=== PATIENT | male | born 1995 | race Caucasian/White ===

== ENCOUNTER 2018-01-15 17:19 | Emergency (ER) | payer MEDICAID ==
[~2018-01-15] VITALS: Ht 165.1 cm; Wt 61.2 kg
[~2018-01-15 17:19] MED LIST: AMOXICILLIN500 MG PO; IBUPROFEN400 MG PO; NKM; RANITIDINE HCL150 MG ORAL; ZOFRAN ODT4 MG ORAL
--- NOTE | 2018-01-15 17:59 | Emergency Room Report ---
History of Present Illness General Chief Complaint: General Complaint Source: Patient Present Illness HPI 22 yo male patient presents to ER complaining of nausea and vomiting following ingesting Tylenol. Patient reports ingesting pills at 1400; states ingested 3 pills of 325mg Tylenol. Complains of nausea and vomiting since that time. Denies thoughts of suicide or hurting others. Reports hx of tooth ache; being seen by dentist currently; reports out of pain medication so took extra Tylenol pills to relieve pain symptoms. Reports next appointment with dentist tomorrow. Patient denies fever, chest pain, SOB. Patient denies abdominal pain, diarrhea, abdominal pain. Allergies: Coded Allergies: No Known Allergies (Unverified , 10/10/12) Patient History Past Medical History: see triage record Reviewed Nursing Documentation: PMH: Agreed, PSxH: Agreed Nursing Documentation-PMH Past Medical History: No Stated History Hx Asthma: Yes Review of Systems All Other Systems: negative except mentioned in HPI Physical Exam Vital Signs Date Time Temp Pulse Resp B/P (MAP) Pulse Ox O2 Delivery O2 Flow Rate FiO2 01/15/18 17:29 97.8 84 16 120/71 99 Room Air 97.9 Sp02 EP Interpretation: reviewed, normal General Appearance: well appearing, no apparent distress, alert, GCS 15 Head: normocephalic, atraumatic Eyes: bilateral eye normal inspection, bilateral eye PERRL ENT: hearing grossly normal, normal pharynx, no angioedema, normal voice, uvula midline, moist mucus membranes Neck: full range of motion Respiratory: lungs clear, normal breath sounds, no rhonchi, no respiratory distress, no accessory muscle use, no wheezing, speaking full sentences Cardiovascular #1: regular rate, rhythm, no edema Gastrointestinal: non tender, soft, no mass, non-distended, no guarding, no rebound Genitourinary: no CVA tenderness Musculoskeletal: back normal, digits/nails normal, gait/station normal, normal range of motion, non-tender Neurologic: alert, oriented x3, responsive, motor strength/tone normal, sensory intact Psychiatric: mood/affect normal Skin: no rash Lymphatic: no adenopathy Medical Decision Making PA Attestation Dr. Freeman is my supervising Physician whom patient management has been discussed with. Diagnostic Impression: Primary Impression: Vomiting ER Course Pt. presents to the ED c/o vomiting. Ddx considered but are not limited to enteritis, viral syndrome, food poisoning. Vital signs: are WNL, pt. is afebrile Ordered labs, urine drug screen and medication. Low suspicion for acetaminophen toxicity. PE benign. ER COURSE: Medication provided to patient, patient reports feeling better following administration of medication. Labs unremarkable, no elevation in WBC. Changes likely due to vomiting symptoms. Acetaminophen level not elevated. UA unremarkable. Urine drug screen negative. Discussed results with patient. Informed patient not to take larger than recommended dose of Tylenol. Informed patient to take medication with food to avoid irritation to stomach. Instructed patient to drink of fluids to avoid dehydration. Instructed patient not to not eat foods that may irritate stomach, rest at home. Informed patient to return to dentist tomorrow for further treatment and discuss pain medication at that time. Patient reports understanding and agreement to treatment plan. Patient given second dose of Zofran prior to discharge. DISCHARGE: Rx provided for Zofran At this time pt is stable for d/c to home. Patient is resting comfortably, in no acute distress, nontoxic appearing, talking without difficulty. Patient to take medications as instructed Will provide with patient care instructions and any necessary prescriptions. Care plan and follow-up instructions provided. Patient instructed to follow-up with primary care provider in 3 - 5 days. Patient questions asked and answered. Patient reports understanding and agreement to treatment plan. ER precautions given. Patient instructed to return to ER immediately for any new or worsening of symptoms including but not limited to increasing SOB, persistent fever. Labs Test 01/15/18 18:24 White Blood Count 10.6 K/UL (4.8-10.8) Red Blood Count 4.52 M/UL (4.70-6.10) Hemoglobin 13.6 G/DL (14.2-18.0) Hematocrit 38.7 % (42.0-52.0) Mean Corpuscular Volume 86 FL (80-99) Mean Corpuscular Hemoglobin 30.2 PG (27.0-31.0) Mean Corpuscular Hemoglobin Concent 35.2 G/DL (32.0-36.0) Red Cell Distribution Width 11.0 % (11.6-14.8) Platelet Count 240 K/UL (150-450) Mean Platelet Volume 6.6 FL (6.5-10.1) Neutrophils (%) (Auto) 79.1 % (45.0-75.0) Lymphocytes (%) (Auto) 15.0 % (20.0-45.0) Monocytes (%) (Auto) 4.8 % (1.0-10.0) Eosinophils (%) (Auto) 0.5 % (0.0-3.0) Basophils (%) (Auto) 0.6 % (0.0-2.0) Urine Color Pale yellow Urine Appearance Clear Urine pH 6.5 (4.5-8.0) Urine Specific [place] 1.010 (1.005-1.035) Urine Protein Negative (NEGATIVE) Urine Glucose (UA) Negative (NEGATIVE) Urine Ketones 2+ (NEGATIVE) Urine Occult Blood 1+ (NEGATIVE) Urine Nitrite Negative (NEGATIVE) Urine Bilirubin Negative (NEGATIVE) Urine Urobilinogen Normal MG/DL (0.0-1.0) Urine Leukocyte Esterase Negative (NEGATIVE) Urine RBC 0-2 /HPF (0 - 0) Urine WBC 0-2 /HPF (0 - 0) Urine Squamous Epithelial Cells None /LPF (NONE/OCC) Urine Bacteria None /HPF (NONE) Sodium Level 124 MMOL/L (136-145) Potassium Level 3.4 MMOL/L (3.5-5.1) Chloride Level 90 MMOL/L (98-107) Carbon Dioxide Level 28 MMOL/L (21-32) Anion Gap 6 mmol/L (5-15) Blood Urea Nitrogen 10 mg/dL (7-18) Creatinine 0.7 MG/DL (0.55-1.30) Estimat Glomerular Filtration Rate > 60 mL/min (>60) Glucose Level 100 MG/DL (74-106) Calcium Level 8.6 MG/DL (8.5-10.1) Total Bilirubin 0.9 MG/DL (0.2-1.0) Aspartate Amino Transf (AST/SGOT) 15 U/L (15-37) Alanine Aminotransferase (ALT/SGPT) 21 U/L (12-78) Alkaline Phosphatase 71 U/L (46-116) Total Protein 7.2 G/DL (6.4-8.2) Albumin 4.1 G/DL (3.4-5.0) Globulin 3.1 g/dL Albumin/Globulin Ratio 1.3 (1.0-2.7) Urine Opiates Screen Negative (NEGATIVE) Acetaminophen Level < 2 MCG/ML (10-30) Urine Barbiturates Screen Negative (NEGATIVE) Phencyclidine (PCP) Screen Negative (NEGATIVE) Urine Amphetamines Screen Negative (NEGATIVE) Urine Benzodiazepines Screen Negative (NEGATIVE) Urine Cocaine Screen Negative (NEGATIVE) Urine Marijuana (THC) Screen Negative (NEGATIVE) Last Vital Signs Date Time Temp Pulse Resp B/P (MAP) Pulse Ox O2 Delivery O2 Flow Rate FiO2 01/15/18 17:29 97.8 84 16 120/71 99 Room Air 97.9 Disposition: HOME, SELF-CARE Condition: Stable Scripts Ondansetron Odt* (ZOFRAN ODT*) 4 Mg Tab.rapdis 4 MG ORAL Q6H Y for Nausea & Vomiting, #30 TAB Prov: Cornelio Jarvis 01/15/18 Patient Instructions: Acetaminophen Overdose, Nausea and Vomiting, Adult, Easy- to-Read Additional Instructions: Followup with primary care provider in 3 -5 days. Followup with dentist for further treatment and referral. Do not take Tylenol in larger than dose prescribed. Take medications as directed. Patient questions asked and answered. ER precautions given, patient instructed to return to ER immediately for any new or worsening of symptoms including but not limited to intractable vomiting, fever, blood in stool. Cornelio Jarvis Jan 15, 2018 17:59
[2018-01-15 18:42] LABS: BASOPHILS % (AUTO) 0.6 % (0.0-2.0); EOSINOPHILS % (AUTO) 0.5 % (0.0-3.0); HEMATOCRIT 38.7 % (42.0-52.0); HEMOGLOBIN 13.6 G/DL (14.2-18.0); MEAN CORPUSCULAR VOLUME 86 FL (80-99); MONOCYTES % (AUTO) 4.8 % (1.0-10.0); NEUTROPHILS % (AUTO) 79.1 % (45.0-75.0); PLATELET COUNT 240 K/UL (150-450); RED BLOOD COUNT 4.52 M/UL (4.70-6.10); WHITE BLOOD COUNT 10.6 K/UL (4.8-10.8)
[2018-01-15 18:43] LABS: APPEARANCE,URINE CLEAR; BILIRUBIN, URINE NEGATIVE (NEGATIVE); COLOR,URINE PALE YELLOW; GLUCOSE, URINE (UA) NEGATIVE (NEGATIVE); KETONES,URINE 2+ (NEGATIVE); LEUKOCYTE ESTERASE ,URINE NEGATIVE (NEGATIVE); NITRITE,URINE NEGATIVE (NEGATIVE); PH,URINE 6.5 (4.5-8.0); PROTEIN,URINE NEGATIVE (NEGATIVE); UROBILINOGEN,URINE NORMAL MG/DL (0.0-1.0)
[2018-01-15 18:52] LABS: ANION GAP 6 mmol/L (5-15); BLOOD UREA NITROGEN 10 mg/dL (7-18); CALCIUM 8.6 MG/DL (8.5-10.1); CARBON DIOXIDE 28 MMOL/L (21-32); CHLORIDE 90 MMOL/L (98-107); CREATININE 0.7 MG/DL (0.55-1.30); POTASSIUM 3.4 MMOL/L (3.5-5.1); SODIUM 124 MMOL/L (136-145)
[2018-01-15 18:57] LABS: ALANINE AMINOTRANSFERASE 21 U/L (12-78); ALBUMIN 4.1 G/DL (3.4-5.0); ALBUMIN/GLOBULIN RATIO 1.3 (1.0-2.7); ALKALINE PHOSPHATASE 71 U/L (46-116); ASPARTATE AMINO TRANSFERASE 15 U/L (15-37); BILIRUBIN,TOTAL 0.9 MG/DL (0.2-1.0)
[2018-01-15] MEDS ORDERED: ZOFRAN ODT4 MG ORAL (19:57)
[2018-01-15] MEDS ORDERED: Meclizine 25mg tab ORAL PRN (20:45)
[2018-01-15 21:36] VITALS: BP 128/72
== END 2018-01-15 21:37 | disposition home or self-care (01) ==
LOC: EMR 18:20
DX: R11.2 Nausea with vomiting, unspecified (principal); J45.909 Unspecified asthma, uncomplicated
CPT/HCPCS: 36415; 80053; 80307; 80329; 81003; 85025; 99284

== ENCOUNTER 2018-08-03 22:58 | Emergency (ER) | payer MEDICAID ==
[~2018-08-03] VITALS: Ht 165.1 cm; Wt 72.6 kg
[2018-08-03 23:13] VITALS: BP 118/67
[2018-08-03] MEDS ORDERED: OCUFLOX5 ML RIGHT EYE (23:50)
[2018-08-03] MEDS ORDERED: CLARITIN-D 241 EACH PO (23:50)
[2018-08-03 23:55] VITALS: BP 120/60
--- NOTE | 2018-08-04 01:14 | Emergency Room Report ---
History of Present Illness General Chief Complaint: Eye Problems Source: Patient Present Illness HPI 22-year-old male presents ED for evaluation of eye pain. Started 2 days ago. States pain is dull, 5 out of 10, nonradiating. Denies any photophobia or blurry vision. Notes pain to the right eye, no pain to the left. States that he also notes tearing sensation and redness to the eye. Denies any sick contacts or recent travel. Denies any fevers or chills. Denies any sore throat or cough. No other aggravating relieving factors. Denies any other associated symptoms Allergies: Coded Allergies: No Known Allergies (Unverified , 10/10/12) Patient History Past Medical History: asthma Past Surgical History: none Pertinent Family History: none Social History: Denies: smoking, alcohol use, drug use Immunizations: UTD Reviewed Nursing Documentation: PMH: Agreed; PSxH: Agreed Nursing Documentation-PMH Past Medical History: No Stated History Hx Asthma: Yes Review of Systems All Other Systems: negative except mentioned in HPI Physical Exam Vital Signs Date Time Temp Pulse Resp B/P (MAP) Pulse Ox O2 Delivery O2 Flow Rate FiO2 08/03/18 23:08 97.8 75 14 118/67 97 Room Air 97.9 Sp02 EP Interpretation: reviewed, normal General Appearance: no apparent distress, alert, GCS 15, non-toxic Head: normocephalic Eyes: bilateral eye normal inspection, bilateral eye PERRL, bilateral eye EOMI , bilateral eye lid inflammation, bilateral eye visual acuity ENT: hearing grossly normal, normal pharynx, no angioedema, normal voice Neck: full range of motion, supple, no meningismus, supple/symm/no masses Respiratory: normal inspection Cardiovascular #1: normal inspection Gastrointestinal: normal inspection Rectal: deferred Genitourinary: no CVA tenderness Musculoskeletal: back normal Neurologic: alert, oriented x3, responsive, motor strength/tone normal, sensory intact, speech normal Psychiatric: normal inspection Skin: normal inspection Lymphatic: normal inspection Medical Decision Making Diagnostic Impression: Primary Impression: Eye problem ER Course Hospital Course 22-year-old M presents to ED with r eye pain Differential diagnoses include: conjunctivitis, traumatic iritis, foreign body, corneal abrasion Clinical course Patient placed on stretcher. After initial history, physical exam revealed a male no acute distress. There is tenderness to the right eyelid. No sign of a stye or other and infection. No scleral injection. Visual acuity unchanged. No photophobia. There is some appreciable swelling of both eyelids. Consistent with allergies. Patient describes symptoms of scleral injection and tearing sensation. We will treat for both allergies and conjunctivitis. I'll prescribe Claritin and Ocuflox. Recommend follow-up with ophthalmology Diagnosis - eye problem Stable and discharged to home with prescription for Ocuflox, claritin. Followup with PMD/Optho. Return to ED if symptoms recur or worsen Last Vital Signs Date Time Temp Pulse Resp B/P (MAP) Pulse Ox O2 Delivery O2 Flow Rate FiO2 08/03/18 23:55 97.9 70 18 120/60 96 Room Air Status: improved Disposition: HOME, SELF-CARE Condition: Stable Scripts Loratadine/Pseudoephedrine (CLARITIN-D 24 HOUR TABLET) 1 Each Tab.er.24h 1 TAB PO DAILY, #10 TAB Prov: Jeremy Pizarro MD 08/03/18 Ofloxacin (OCUFLOX) 5 Ml Drops 1 DROP RIGHT EYE QID for 7 Days, ML Prov: Jeremy Pizarro MD 08/03/18 Referrals: [facility] (PCP) Patient Instructions: Bacterial Conjunctivitis Jeremy Pizarro MD Aug 04, 2018 01:14
== END 2018-08-03 23:55 | disposition home or self-care (01) ==
LOC: EMR 23:33
DX: H57.11 Ocular pain, right eye (principal); J45.909 Unspecified asthma, uncomplicated
CPT/HCPCS: 99283

== ENCOUNTER 2018-10-02 20:51 | Emergency (ER) | payer MEDICAID ==
[~2018-10-02] VITALS: Ht 165.1 cm; Wt 63.5 kg
[~2018-10-02 20:51] MED LIST changes: +CLARITIN-D 241 EACH PO; +OCUFLOX5 ML RIGHT EYE
[2018-10-02 21:10] VITALS: BP 114/72
[2018-10-02] MEDS ORDERED: Lidocaine 2% Visc 15ml soln ORAL ONE (21:30)
[2018-10-02] MEDS ORDERED: Dicyclomine HCl 10mg/5ml oral soln ORAL ONE (21:30)
[2018-10-02] MEDS ORDERED: Mylanta II UD 30ml ORAL ONE (21:30)
--- NOTE | 2018-10-02 21:31 | Emergency Room Report ---
History of Present Illness General Chief Complaint: Abdominal Pain Source: Patient Present Illness HPI Patient is a 22-year-old male who presented after increased epigastric pain and vomiting. The patient reports having multiple episodes of watery diarrhea associated with intermittent emesis. Patient reports having eaten some spaghetti which he thinks might of been bad. He denies any bloody stools. He denies recent alcohol intake. He denies marijuana use. Allergies: Coded Allergies: No Known Allergies (Unverified , 10/10/12) Patient History Past Medical History: see triage record Reviewed Nursing Documentation: PMH: Agreed; PSxH: Agreed Nursing Documentation-PMH Hx Asthma: Yes Review of Systems All Other Systems: negative except mentioned in HPI Physical Exam Vital Signs Date Time Temp Pulse Resp B/P (MAP) Pulse Ox O2 Delivery O2 Flow Rate FiO2 10/02/18 20:56 99.7 122 18 112/71 97 Room Air Sp02 EP Interpretation: reviewed, normal General Appearance: normal inspection, well appearing, no apparent distress, alert, GCS 15, non-toxic Head: atraumatic ENT: normal ENT inspection, hearing grossly normal, normal voice, other - right lower lip herpetiform lesions Neck: normal inspection, full range of motion, supple, no bony tend Respiratory: normal inspection, lungs clear, normal breath sounds, no respiratory distress, no retraction, no wheezing Cardiovascular #1: regular rate, rhythm, no edema Gastrointestinal: normal inspection, normal bowel sounds, non tender, soft, no guarding, no hernia Genitourinary: no CVA tenderness Musculoskeletal: normal inspection, back normal, normal range of motion Neurologic: normal inspection, alert, responsive, speech normal Psychiatric: normal inspection, judgement/insight normal, mood/affect normal Skin: normal inspection, normal color, no rash Medical Decision Making Diagnostic Impression: Primary Impression: Abdominal pain Additional Impression: Gastroenteritis ER Course Patient presented for abdominal pain. Differential diagnoses included ischemic bowel, appendicitis, perforated viscus, abdominal aortic aneurysm, inferior myocardial infarction, viral gastroenteritis Because of complexity of patient's case laboratory testing and imaging studies were ordered. Patient was given IV fluids as well as IV antiemetics. He is given medications for abdominal discomfort. The patient was noted to have symptomatic improvement. Patient was given acyclovir for oral herpes The patient given prescription for antiemetics and antispasmodics.Repeat abdominal exam appeared to be benign the patient is advised to return if he began having worsening pain persistent vomiting or other concerns. He is advised to recheck with his primary care physicianThe patient is advised to follow up with primary care doctor in 1-2 days. Patient is advised to return if any worsening condition or if any changes in status that are concerning. This report is dictated with [employer] plunket nurse software which may occasionally lead to discrepancies related to use of this software. Last Vital Signs Date Time Temp Pulse Resp B/P (MAP) Pulse Ox O2 Delivery O2 Flow Rate FiO2 10/02/18 20:56 99.7 122 18 112/71 97 Room Air Status: improved Disposition: HOME, SELF-CARE Condition: Stable Scripts Dicyclomine Hcl* (DICYCLOMINE HCL*) 10 Mg Capsule 10 MG PO QID, #30 CAP Prov: Richard Lee MD 10/02/18 Ondansetron (Zofran) 4 Mg Tablet 4 MG ORAL Q6H PRN for Nausea & Vomiting, #30 TAB 0 Refills Prov: Richard Lee MD 10/02/18 Acyclovir* (ACYCLOVIR*) 400 Mg Tablet 400 MG ORAL FIVE TIMES A DAY, #35 TAB Prov: Richard Lee MD 10/02/18 Richard Lee MD Oct 02, 2018 21:31
[2018-10-02 21:56] LABS: APPEARANCE,URINE CLEAR; BILIRUBIN, URINE 1+ (NEGATIVE); GLUCOSE, URINE (UA) NEGATIVE (NEGATIVE); KETONES,URINE 3+ (NEGATIVE); LEUKOCYTE ESTERASE ,URINE 1+ (NEGATIVE); NITRITE,URINE NEGATIVE (NEGATIVE); PH,URINE 7 (4.5-8.0); PROTEIN,URINE 2+ (NEGATIVE); UROBILINOGEN,URINE 4 MG/DL (0.0-1.0)
[2018-10-02 22:14] LABS: ANION GAP 8 mmol/L (5-15); BLOOD UREA NITROGEN 14 mg/dL (7-18); CALCIUM 9.4 MG/DL (8.5-10.1); CARBON DIOXIDE 28 MMOL/L (21-32); CHLORIDE 100 MMOL/L (98-107); POTASSIUM 3.9 MMOL/L (3.5-5.1); SODIUM 136 MMOL/L (136-145)
[2018-10-02 22:24] LABS: ALANINE AMINOTRANSFERASE 23 U/L (12-78); ALBUMIN/GLOBULIN RATIO 0.9 (1.0-2.7); ALKALINE PHOSPHATASE 71 U/L (46-116); ASPARTATE AMINO TRANSFERASE 15 U/L (15-37); BILIRUBIN,TOTAL 1.8 MG/DL (0.2-1.0); COLOR,URINE YELLOW
[2018-10-02 22:25] LABS: BASOPHILS % (AUTO) 0.5 % (0.0-2.0); EOSINOPHILS % (AUTO) 0.2 % (0.0-3.0); HEMOGLOBIN 16.6 G/DL (14.2-18.0); LYMPHOCYTES % (AUTO) 13.7 % (20.0-45.0); MEAN CORPUSCULAR VOLUME 86 FL (80-99); MONOCYTES % (AUTO) 7.5 % (1.0-10.0); NEUTROPHILS % (AUTO) 78.1 % (45.0-75.0); PLATELET COUNT 214 K/UL (150-450); RED BLOOD COUNT 5.49 M/UL (4.70-6.10); RED CELL DISTRIBUTION WIDTH 10.7 % (11.6-14.8); WHITE BLOOD COUNT 7.8 K/UL (4.8-10.8)
[2018-10-02 22:26] LABS: INR 1.2 (0.9-1.1)
[2018-10-02 22:30] LABS: BILIRUBIN,DIRECT 0.2 MG/DL (0.0-0.3)
[2018-10-02] MEDS ORDERED: ZOFRAN4 MG ORAL (23:00)
[2018-10-02] MEDS ORDERED: DICYCLOMINE HCL10 MG PO (23:00)
[2018-10-02] MEDS ORDERED: ACYCLOVIR400 MG ORAL (23:00)
[2018-10-02 23:06] VITALS: BP 116/74
== END 2018-10-02 23:06 | disposition home or self-care (01) ==
LOC: EMR 21:16
DX: K52.9 Noninfective gastroenteritis and colitis, unspecified (principal); R10.13 Epigastric pain; R19.7 Diarrhea, unspecified
CPT/HCPCS: 36415; 80053; 81003; 82248; 83690; 85025; 85610; 85730; 86850; 86900; 86901; 96361; 96374; 96375; 99284; J2405; S0028

== ENCOUNTER 2018-10-22 10:11 | Emergency (ER) | payer MEDICAID ==
[~2018-10-22] VITALS: Ht 162.6 cm; Wt 59.0 kg
[~2018-10-22 10:11] MED LIST changes: +ACYCLOVIR400 MG ORAL; +DICYCLOMINE HCL10 MG PO; +ZOFRAN4 MG ORAL
[2018-10-22 11:00] LABS: APPEARANCE,URINE CLEAR; BILIRUBIN, URINE NEGATIVE (NEGATIVE); COLOR,URINE PALE YELLOW; GLUCOSE, URINE (UA) NEGATIVE (NEGATIVE); KETONES,URINE NEGATIVE (NEGATIVE); LEUKOCYTE ESTERASE ,URINE NEGATIVE (NEGATIVE); NITRITE,URINE NEGATIVE (NEGATIVE); PH,URINE 8 (4.5-8.0); PROTEIN,URINE NEGATIVE (NEGATIVE); UROBILINOGEN,URINE NORMAL MG/DL (0.0-1.0)
[2018-10-22] MEDS ORDERED: Isovue-300 100ml vial INJ PRN (11:00)
[2018-10-22] MEDS ORDERED: Morphine Sulfate 4mg/ml Inj (IV/IM USE ONLY) IVP ONE ×2 (11:00)
[2018-10-22 11:01] LABS: EOSINOPHILS % (AUTO) 0.2 % (0.0-3.0); HEMATOCRIT 47.3 % (42.0-52.0); HEMOGLOBIN 16.1 G/DL (14.2-18.0); LYMPHOCYTES % (AUTO) 8.1 % (20.0-45.0); MEAN CORPUSCULAR VOLUME 85 FL (80-99); MONOCYTES % (AUTO) 6.9 % (1.0-10.0); NEUTROPHILS % (AUTO) 83.7 % (45.0-75.0); PLATELET COUNT 252 K/UL (150-450); RED BLOOD COUNT 5.58 M/UL (4.70-6.10); WHITE BLOOD COUNT 14.7 K/UL (4.8-10.8)
--- NOTE | 2018-10-22 11:04 | Emergency Room Report ---
History of Present Illness General Chief Complaint: Abdominal Pain Source: Patient Present Illness [facility] Antonio is a very pleasant 22 year-old male who presents with severe right lower quadrant pain which began gradually last night. He attempted to go to work today, however due to severe pain he went home. He has mild global headache. He has subjective fever. Positive nausea. Last meal was last night. He did not eat today. No history of surgery. Pain is worse with palpation movement and cough. No radiation of the pain. 2 brothers have a history of appendicitis. Patient doesn't smoke, he does not drink, he works as a fast food cashier. Pain is 8 out of 10 in severity, dull achy pain. Pain is constant. Allergies: Coded Allergies: No Known Allergies (Unverified , 10/10/12) Patient History Past Medical History: none Past Surgical History: none Pertinent Family History: other - as per history of present illness Social History: Denies: smoking, alcohol use Reviewed Nursing Documentation: PMH: Agreed; PSxH: Agreed Nursing Documentation-PMH Hx Cardiac Problems: No Hx Hypertension: No Hx Pacemaker: No Hx Asthma: Yes Hx COPD: No Hx Diabetes: No Hx Cancer: No Hx Gastrointestinal Problems: No Hx Dialysis: No Hx Neurological Problems: No Hx Cerebrovascular Accident: No Hx Seizures: No Review of Systems Constitutional: Reports: fever, malaise Gastrointestinal: Reports: abdominal pain, nausea Neurological: Reports: headache All Other Systems: negative except mentioned in HPI Physical Exam Vital Signs Date Time Temp Pulse Resp B/P (MAP) Pulse Ox O2 Delivery O2 Flow Rate FiO2 10/22/18 10:15 98.6 123 16 123/70 98 Room Air Sp02 EP Interpretation: reviewed, normal General Appearance: alert, GCS 15, non-toxic, mild distress, other - appears pale, grayish skin discoloration Head: normocephalic, atraumatic Eyes: bilateral eye normal inspection, bilateral eye PERRL ENT: hearing grossly normal, normal pharynx, no angioedema, normal voice Neck: full range of motion, supple/symm/no masses Respiratory: chest non-tender, lungs clear, normal breath sounds, speaking full sentences Cardiovascular #1: no edema, no gallop, no JVD, no murmur, tachycardia Gastrointestinal: soft, guarding, rebound, tenderness, other - RLQ tenderness with guarding and tenderness Musculoskeletal: gait/station normal, normal range of motion, non-tender Neurologic: alert, oriented x3, responsive, motor strength/tone normal, sensory intact, speech normal Psychiatric: judgement/insight normal, memory normal, mood/affect normal, no suicidal/homicidal ideation Skin: normal color, no rash, warm/dry, well hydrated Medical Decision Making Diagnostic Impression: Primary Impression: Abdominal pain ER Course Antonio is a 22 yo male who presents with RLQ pain. With tenderness and elevated WBC, I immediately suspected appendicitis. Howvever, I reviewed EMR. He has had at least 5 prior similar presentations with GI concerns. I spoke with him extensively. I informed him that I am concerned from inflammatory bowel disease such as Crohn's disease. I strongly encouraged him to see his PCP. He has had symptoms of diarrhea in the past. rx; flagyl, cipro Tachycardia did resolved with pain medication and IVF Labs Test 10/22/18 10:27 White Blood Count 14.7 K/UL (4.8-10.8) Red Blood Count 5.58 M/UL (4.70-6.10) Hemoglobin 16.1 G/DL (14.2-18.0) Hematocrit 47.3 % (42.0-52.0) Mean Corpuscular Volume 85 FL (80-99) Mean Corpuscular Hemoglobin 28.8 PG (27.0-31.0) Mean Corpuscular Hemoglobin Concent 34.0 G/DL (32.0-36.0) Red Cell Distribution Width 11.0 % (11.6-14.8) Platelet Count 252 K/UL (150-450) Mean Platelet Volume 7.1 FL (6.5-10.1) Neutrophils (%) (Auto) 83.7 % (45.0-75.0) Lymphocytes (%) (Auto) 8.1 % (20.0-45.0) Monocytes (%) (Auto) 6.9 % (1.0-10.0) Eosinophils (%) (Auto) 0.2 % (0.0-3.0) Basophils (%) (Auto) 1.0 % (0.0-2.0) Urine Color Pale yellow Urine Appearance Clear Urine pH 8 (4.5-8.0) Urine Specific [place] 1.010 (1.005-1.035) Urine Protein Negative (NEGATIVE) Urine Glucose (UA) Negative (NEGATIVE) Urine Ketones Negative (NEGATIVE) Urine Blood 1+ (NEGATIVE) Urine Nitrite Negative (NEGATIVE) Urine Bilirubin Negative (NEGATIVE) Urine Urobilinogen Normal MG/DL (0.0-1.0) Urine Leukocyte Esterase Negative (NEGATIVE) Urine RBC 2-4 /HPF (0 - 0) Urine WBC 0 /HPF (0 - 0) Urine Squamous Epithelial Cells Occasional /LPF Urine Bacteria Occasional /HPF (NONE) Sodium Level 136 MMOL/L (136-145) Potassium Level 3.7 MMOL/L (3.5-5.1) Chloride Level 100 MMOL/L (98-107) Carbon Dioxide Level 28 MMOL/L (21-32) Anion Gap 8 mmol/L (5-15) Blood Urea Nitrogen 9 mg/dL (7-18) Creatinine 0.9 MG/DL (0.55-1.30) Estimat Glomerular Filtration Rate > 60 mL/min (>60) Glucose Level 91 MG/DL (74-106) Calcium Level 9.5 MG/DL (8.5-10.1) Total Bilirubin 0.8 MG/DL (0.2-1.0) Aspartate Amino Transf (AST/SGOT) 17 U/L (15-37) Alanine Aminotransferase (ALT/SGPT) 33 U/L (12-78) Alkaline Phosphatase 84 U/L (46-116) Total Protein 9.6 G/DL (6.4-8.2) Albumin 4.6 G/DL (3.4-5.0) Globulin 5.0 g/dL Albumin/Globulin Ratio 0.9 (1.0-2.7) CT/MRI/US Diagnostic Results CT/MRI/US Diagnostic Results : Impression CT no acute process Last Vital Signs Date Time Temp Pulse Resp B/P (MAP) Pulse Ox O2 Delivery O2 Flow Rate FiO2 10/22/18 10:49 113 16 Room Air 10/22/18 10:15 98.6 123/70 98 Status: improved Condition: Stable Referrals: [facility] (PCP) Maren Wong MD Oct 22, 2018 11:04
[2018-10-22 11:10] LABS: ANION GAP 8 mmol/L (5-15); BLOOD UREA NITROGEN 9 mg/dL (7-18); CALCIUM 9.5 MG/DL (8.5-10.1); CARBON DIOXIDE 28 MMOL/L (21-32); CHLORIDE 100 MMOL/L (98-107); CREATININE 0.9 MG/DL (0.55-1.30); POTASSIUM 3.7 MMOL/L (3.5-5.1); SODIUM 136 MMOL/L (136-145)
[2018-10-22 11:15] LABS: ALANINE AMINOTRANSFERASE 33 U/L (12-78); ALBUMIN 4.6 G/DL (3.4-5.0); ALBUMIN/GLOBULIN RATIO 0.9 (1.0-2.7); ALKALINE PHOSPHATASE 84 U/L (46-116); ASPARTATE AMINO TRANSFERASE 17 U/L (15-37); BILIRUBIN,TOTAL 0.8 MG/DL (0.2-1.0)
--- NOTE | 2018-10-22 12:34 | Diagnostic Imaging Report ---
Clinical Indication: Severe right lower quadrant abdominal pain which began gradually last night, subjective fever, positive nausea Technique: No oral contrast utilized, per emergency room physician request IV administration nonionic contrast. Venous phase spiral acquisition obtained through the abdomen and pelvis. Multiplanar reconstructions were generated. Total dose length product 487.52 mGycm. CTDIvol(s) 10.35 mGy. Dose reduction achieved using automated exposure control Comparison: none Findings: Lack of enteric contrast limits assessment of the GI tract. The appendix is normal. There is no evidence of diverticulosis or diverticulitis. The rectum is mildly distended with stool. There is a single very focal mildly dilated small bowel loop in the left upper quadrant. No other small bowel distention. No free or loculated intraperitoneal gas or fluid. The liver, gallbladder, bile ducts, pancreas, spleen, adrenals are unremarkable. There are prominent extrarenal pelvises bilaterally. Otherwise unremarkable kidneys. The bladder is distended, otherwise unremarkable. No renal or ureteral calculi, hydronephrosis, or hydroureter. No pelvic mass or adenopathy. The included lung bases are clear. The bones are unremarkable. Impression: Limited assessment of the GI tract, due to lack of enteric contrast administration No definite acute abnormality. Normal appendix Single focally dilated left upper quadrant small bowel loop, significance doubtful Mild rectal distention with stool. Correlate with any history of constipation The CT scanner at [facility] is accredited by the [employer] and the scans are performed using protocols designed to limit radiation exposure to as low as reasonably achievable to attain images of sufficient resolution adequate for diagnostic evaluation.
[2018-10-22 13:41] VITALS: BP 125/68
[2018-10-22] MEDS ORDERED: FLAGYL500 MG ORAL (13:45)
[2018-10-22] MEDS ORDERED: CIPROFLOXACIN500 M2 ORAL (13:45)
[2018-10-22 14:20] VITALS: BP 122/70
[2018-10-22 14:21] VITALS: BP 122/70
== END 2018-10-22 14:32 | disposition home or self-care (01) ==
LOC: EMR 10:50
DX: R10.31 Right lower quadrant pain (principal); R11.0 Nausea; J45.909 Unspecified asthma, uncomplicated
CPT/HCPCS: 36415; 74177; 80053; 81003; 85025; 96361; 96374; 96375; 96376; 99284; J2270; J2405; Q9967

== ENCOUNTER 2019-04-24 14:28 | Emergency (ER) | payer MEDICAID ==
[~2019-04-24] VITALS: Ht 165.1 cm; Wt 63.5 kg
[~2019-04-24 14:28] MED LIST changes: +CIPROFLOXACIN500 M2 ORAL; +FLAGYL500 MG ORAL
[2019-04-24 14:34] VITALS: BP 122/65
--- NOTE | 2019-04-24 14:40 | NUR ---
ED Nurse Note: Patient presents to ER due to flu-like symptoms (cough, runny nose). No cough, fever, chills or rash noted. Patient awake, alter, oriented x 4. Regular, unlabored breathing noted. No facial grimacing or guarding noted.
--- NOTE | 2019-04-24 14:44 | Emergency Room Report ---
History of Present Illness General Chief Complaint: Flu Like Symptoms Source: Patient Present Illness HPI 23-year-old male with no significant past medical history here complaining of 4 days of sore throat, congestion and cough. Patient is rating the pain in his throat 5 out of 10 without radiation, denying fever and chills. Patient has taken [id number] Mucinex for symptom relief reporting that he now has yellow phlegm as he coughs. Denies wheezing, shortness of breath, chest pain, palpitation, abdominal pain nausea vomiting. Allergies: Coded Allergies: No Known Allergies (Unverified , 10/10/12) Patient History Past Medical History: see triage record Past Surgical History: unable to obtain Pertinent Family History: none Immunizations: UTD Reviewed Nursing Documentation: PMH: Agreed; PSxH: Agreed Nursing Documentation-PMH Past Medical History: No Stated History Hx Cardiac Problems: No Hx Hypertension: No Hx Pacemaker: No Hx Asthma: Yes Hx COPD: No Hx Diabetes: No Hx Cancer: No Hx Gastrointestinal Problems: No Hx Dialysis: No Hx Neurological Problems: No Hx Cerebrovascular Accident: No Hx Seizures: No Review of Systems All Other Systems: negative except mentioned in HPI Physical Exam Vital Signs Date Time Temp Pulse Resp B/P (MAP) Pulse Ox O2 Delivery O2 Flow Rate FiO2 04/24/19 14:34 98.2 83 18 122/65 (84) 97 Room Air Sp02 EP Interpretation: reviewed, normal General Appearance: normal inspection, well appearing Head: normocephalic, atraumatic Eyes: bilateral eye normal inspection, bilateral eye PERRL ENT: no angioedema, TMs + canals normal, uvula midline, tonsillar swelling, pharyngeal erythema Neck: normal inspection, full range of motion, supple Respiratory: normal inspection, chest non-tender, no rhonchi, no wheezing Cardiovascular #1: normal inspection, normal peripheral pulses, regular rate, rhythm, no murmur Gastrointestinal: normal inspection, non tender, soft Genitourinary: no CVA tenderness Musculoskeletal: normal inspection, back normal Neurologic: normal inspection, alert, oriented x3 Psychiatric: normal inspection, judgement/insight normal Skin: normal inspection, normal color, no rash, warm/dry Lymphatic: normal inspection, no adenopathy Medical Decision Making PA Attestation All my diagnosis and treatment plans were reviewed ad discussed with my supervising physician Dr. Lee Diagnostic Impression: Primary Impression: Pharyngitis ER Course 23-year-old male with no significant past medical history here complaining of 4 days of sore throat, congestion and cough. Patient is rating the pain in his throat 5 out of 10 without radiation, denying fever and chills. Patient has taken [id number] Mucinex for symptom relief reporting that he now has yellow phlegm as he coughs. Denies wheezing, shortness of breath, chest pain, palpitation, abdominal pain nausea vomiting. Ddx considered but are not limited to: strep pharyngitis, URI, tonsilitis, peritonsillar absacess, influneza Vital signs: are WNL, pt. is afebrile H&PE are most consistent with: pharyngitis ORDERS: azithromycin, sidney donald ED INTERVENTIONS: None required at this time. DISCHARGE: At this time pt. is stable for d/c to home. Will provide printed patient care instructions, and any necessary prescriptions. Care plan and follow up instructions have been discussed with the patient prior to discharge. Last Vital Signs Date Time Temp Pulse Resp B/P (MAP) Pulse Ox O2 Delivery O2 Flow Rate FiO2 04/24/19 14:34 98.2 83 18 122/65 (84) 97 Room Air Disposition: HOME, SELF-CARE Condition: Stable Scripts Benzonatate* (TESSALON PERLE*) 100 Mg Capsule 100 MG ORAL THREE TIMES A DAY, #20 PERLE Prov: Evelyn Mathis 04/24/19 Azithromycin* (ZITHROMAX*) 250 Mg Tablet 250 MG ORAL DAILY, #6 TAB 0 Refills Take two tables once daily for 1 day, then one tablet once daily for 4 days. Prov: Evelyn Mathis 04/24/19 Patient Instructions: Pharyngitis, [id number] Additional Instructions: Take medication as directed follow-up with a primary care provider Evelyn Mathis Apr 24, 2019 14:44
[2019-04-24] MEDS ORDERED: TESSALON PERLE100 MG ORAL (14:45)
[2019-04-24] MEDS ORDERED: ZITHROMAX250 MG ORAL (14:45)
--- NOTE | 2019-04-24 14:54 | NUR ---
ED Nurse Note: Patient is being discharged from medical care. Awake, alert and oriented x4. After care instructions, including prescriptions were given. Patient verbalized understanding of After care instructions. ID band were removed. Patient ambulated out with all personal belongings with steady gait.
== END 2019-04-24 15:01 | disposition home or self-care (01) ==
LOC: EMR 14:36
DX: J02.9 Acute pharyngitis, unspecified (principal)
CPT/HCPCS: 99282

== ENCOUNTER 2019-05-01 23:42 | Emergency (ER) | payer MEDICAID ==
[~2019-05-01] VITALS: Ht 165.1 cm; Wt 63.5 kg
[~2019-05-01 23:42] MED LIST changes: +TESSALON PERLE100 MG ORAL; +ZITHROMAX250 MG ORAL
[2019-05-01 23:52] VITALS: BP 122/78
--- NOTE | 2019-05-01 23:52 | NUR ---
ED Nurse Note: Pt arrived ED from home, c/o right eye pain after scratched his eye by hand 4 days ago. Pt is A/O X 4. VSS. waiting for orders.
[2019-05-02] MEDS ORDERED: Fluorescein Strips RIGHT EYE ONE (00:15)
[2019-05-02] MEDS ORDERED: POLYTRIM OP SOL10 ML OPHTHALM (00:27)
--- NOTE | 2019-05-02 00:27 | Emergency Room Report ---
History of Present Illness General Chief Complaint: Eye Problems Source: Patient Present Illness HPI This is a 23-year-old male with no past medical history. He presents with chief complaint of right eye redness. Onset 3 days ago. He woke in the middle night with itchy right eye. He has been rubbing it. In the morning he noticed some redness and drainage. No contact use. Worse with lights. Worse with blinking. Better with eyedrops. Allergies: Coded Allergies: No Known Allergies (Unverified , 10/10/12) Patient History Past Medical History: see triage record, old chart reviewed Past Surgical History: none Pertinent Family History: none Social History: Denies: smoking Immunizations: other Reviewed Nursing Documentation: PMH: Agreed; PSxH: Agreed Nursing Documentation-PMH Past Medical History: No Stated History Hx Cardiac Problems: No Hx Hypertension: No Hx Pacemaker: No Hx Asthma: Yes Hx COPD: No Hx Diabetes: No Hx Cancer: No Hx Gastrointestinal Problems: No Hx Dialysis: No Hx Neurological Problems: No Hx Cerebrovascular Accident: No Hx Seizures: No Review of Systems Eye: Reports: eye pain, tearing; Denies: blurred vision ENT: Denies: ear pain, nose congestion, throat swelling Respiratory: Denies: cough, shortness of breath Cardiovascular: Denies: chest pain, palpitations Gastrointestinal: Denies: abdominal pain, diarrhea, nausea, vomiting Musculoskeletal: Denies: back pain, joint pain Skin: Denies: rash Neurological: Denies: headache, numbness Endocrine: Denies: increased thirst, increased urine Hematologic/Lymphatic: Denies: easy bruising All Other Systems: negative except mentioned in HPI Physical Exam Vital Signs Date Time Temp Pulse Resp B/P (MAP) Pulse Ox O2 Delivery O2 Flow Rate FiO2 05/01/19 23:46 98.2 76 16 122/78 (93) 96 Room Air Vitals normal Sp02 EP Interpretation: reviewed, normal General Appearance: well appearing, no apparent distress, alert Head: normocephalic, atraumatic Eyes: right eye other - Injected conjunctiva; bilateral eye PERRL, bilateral eye EOMI ENT: hearing grossly normal, normal pharynx Neck: full range of motion, supple, no meningismus Respiratory: chest non-tender, lungs clear, normal breath sounds Cardiovascular #1: regular rate, rhythm, no murmur Gastrointestinal: normal bowel sounds, non tender, no mass, no organomegaly, no bruit, non-distended Musculoskeletal: back normal, gait/station normal, normal range of motion Psychiatric: mood/affect normal Skin: warm/dry Medical Decision Making Diagnostic Impression: Primary Impression: Conjunctivitis Qualified Codes: H10.31 - Unspecified acute conjunctivitis, right eye ER Course Patient with a conjunctivitis. No evidence of corneal abrasion. No globe rupture. Last Vital Signs Date Time Temp Pulse Resp B/P (MAP) Pulse Ox O2 Delivery O2 Flow Rate FiO2 05/01/19 23:46 98.2 76 16 122/78 (93) 96 Room Air Status: improved Disposition: HOME, SELF-CARE Condition: Stable Scripts Polymyxin/Trimethoprim (Polytrim Eye Drops) 10 Ml Drops 2 DROP OPHTHALM THREE TIMES A DAY, #1 EA Instill in affected eye for 7 days Prov: Garrett Maier MD 05/02/19 Patient Instructions: Bacterial Conjunctivitis Additional Instructions: Treat both eyes. Follow-up with your doctor in 7 days for recheck. Return if worse. Garrett Maier MD May 02, 2019 00:27
[2019-05-02 00:32] VITALS: BP 123/74
--- NOTE | 2019-05-02 00:32 | NUR ---
ER DISCHARGE NOTE: Patient is cleared to be discharged per Dr. Maier. Pt had eye examed by . Pt is aox4 on room air with stable vital signs. Pt was given dc and prescription instructions. Pt was able to verbalize understanding. Pt's id band removed. Pt is able to ambulate with steady gait and took all belongings.
== END 2019-05-02 00:32 | disposition home or self-care (01) ==
LOC: EMR 23:55
DX: H10.31 Unspecified acute conjunctivitis, right eye (principal)
CPT/HCPCS: 99282